=== PATIENT | female | born 1950 | race Hispanic/Latino ===

== ENCOUNTER → 2022-04-15 | Outpatient (CLI) | payer MEDICARE | END | disposition home or self-care (01) | LOC: RAH 07:24 → DAH 07:24 → RAH 07:26 | PROVIDERS: ATTEND Internal Medicine Gastroenterology | DX: R11.0 Nausea (principal); R10.13 Epigastric pain; K31.84 Gastroparesis | CPT/HCPCS: 78264; A9541 ==

== ENCOUNTER → 2023-03-12 | Outpatient (CLI) | payer MEDICARE | END | disposition home or self-care (01) | LOC: RAH 13:30 | PROVIDERS: ATTEND Internal Medicine Cardiovascular Disease | DX: G44.89 Other headache syndrome (principal) | CPT/HCPCS: 70450 ==

== ENCOUNTER 2023-10-29 19:15 | Emergency (ER) | payer MEDICARE, OTHER ==
[~2023-10-29] VITALS: Ht 154.9 cm; Wt 63.5 kg
[2023-10-29] MEDS ORDERED: AMOX1TAB16 PO (22:07)
[2023-10-29] MEDS ORDERED: IBUP-2070 PO (22:07)
[2023-10-29] MEDS: DIPH,PERTUSS(ACELL),TET VAC/PF 0.5 ML VIAL IM ONE (22:28)
[2023-10-29] MEDS: KETOROLAC 30MG VIAL (30MG/ML) IM ONE (22:29)
[2023-10-29 22:48] VITALS: BP 142/65; PULSE 84; RESP 14; O2SAT 98
== END 2023-10-29 22:49 | disposition home or self-care (01) ==
LOC: EDH 19:15
DX: S51.812A Laceration without foreign body of left forearm, initial encounter (principal); I10 Essential (primary) hypertension; Z79.899 Other long term (current) drug therapy; W54.0XXA Bitten by dog, initial encounter; Y93.89 Activity, other specified; Y92.89 Other specified places as the place of occurrence of the external cause; Y99.8 Other external cause status
CPT/HCPCS: 99284; 90715; 73090; 73130; 73110; 96372; 90471; J1885